=== PATIENT | female | born 1995 | race Caucasian/White ===

== ENCOUNTER → 2023-09-06 | Emergency (ER) | payer SELFPAY ==
[~2023-09-06] VITALS: Ht 157.5 cm; Wt 49.9 kg
[2023-09-06 11:52] VITALS: TEMP 98.2
[2023-09-06 13:44] VITALS: BP 128/81; O2SAT 98
== END | disposition home or self-care (01) ==
LOC: ER 11:41
DX: B34.9 Viral infection, unspecified (principal)